=== PATIENT | female | born 1985 ===

== ENCOUNTER 2020-05-16 06:07 | Emergency (ER) | payer SELFPAY ==
[2020-05-16 07:03] LABS: #Basophils 0.1 thou/uL (0.0-0.2); #Eosinphils 0.1 thou/uL (0.0-0.7); #Lymphocytes 3.4 thou/uL (1.20-3.40); #Monocytes 0.8 thou/uL (0.11-0.59); #Neutrophils 6.5 thou/uL (1.40-6.50); %Eosinophils 0.7 % (0.0-10.0); %Lymphocytes 30.7 % (21.0-51.0); %Monocytes 7.7 % (0.0-10.0); %Neutrophils 59.9 % (42.0-75.0); Hemoglobin 13.9 g/dL (12.0-16.0); Mean Corpuscular HGB CONC 34.3 g/dL (32.0-36.0); Mean Corpuscular Hemoglobin 33.6 pg (27.0-31.0); Mean Corpuscular Volume 97.9 fL (78.0-98.0); Mean Platelet Volume 8.8 fL (7.4-10.4); Platelet Count 207 thou/uL (130-400); RBC Distribution Width 11.6 % (11.5-14.5); Red Blood Cell (RBC) Count 4.13 mill/uL (4.20-5.40); White Blood Cell (WBC) Count 10.9 thou/uL (4.8-10.8)
[2020-05-16 07:26] LABS: ALT (SGPT) 8 U/L (8-55); AST (SGOT) 14 U/L (5-34); Alkaline Phosphatase 95 U/L (40-110); Anion Gap 14 mmol/L (10-20); BUN (Urea Nitrogen) 11 mg/dL (7.0-18.7); Bilirubin, Total 0.3 mg/dL (0.2-1.2); Calc. Creatinine Clearance 0 mL/min (70-130); Calcium 8.6 mg/dL (7.8-10.44); Carbon Dioxide 21 mmol/L (22-29); Chloride 110 mmol/L (98-107); Estimated GFR-MDRD 87; Globulin 2.7 g/dL (2.4-3.5); Glucose 97 mg/dL (70-105); Protein, Total 6.7 g/dL (6.0-8.3); Sodium 141 mmol/L (136-145)
--- NOTE | 2020-05-16 07:48 | RAD ---
RADIOGRAPH CHEST 1 VIEW: DATE: 05/16/2020 HISTORY: 35-year-old female with chest pain and dyspnea FINDINGS: The visualized lung damon are clear. The cardiomediastinal silhouette and hilar shadows are normal. The lateral costophrenic angles are sharp. The osseous structures appear normal. There is no pneumothorax. IMPRESSION: Negative.
== END 2020-05-16 07:52 | disposition home or self-care (01) ==
LOC: ERS 06:07
DX: R07.89 Other chest pain (principal); F17.200 Nicotine dependence, unspecified, uncomplicated
CPT/HCPCS: 36415; 71045; 80053; 84484; 85025; 85379; 93005